=== PATIENT | female | born 1965 | race Caucasian/White ===

== ENCOUNTER 2018-12-28 15:09 | Emergency (ER) | payer BC ==
[~2018-12-28] VITALS: Ht 160 cm; Wt 105.0 kg
[2018-12-28 15:14] VITALS: BP 131/95; PULSE 117; RESP 20; Ht 160 cm; Wt 105.0 kg
[2018-12-28] MEDS ORDERED: TRIMETHOPRIM/SULFAMETHOX (DS) TAB PO ONE (16:00)
[2018-12-28] MEDS ORDERED: LIDOCAINE 1% (MDV) 20 ML INJ SC ONE (16:00)
[2018-12-28] MEDS ORDERED: CEPHALEXIN 500 MG CAP PO ONE (16:00)
[2018-12-28] MEDS ORDERED: IBUPROFEN 600 MG TAB PO ONE (16:00)
[2018-12-28] MEDS ORDERED: LIDOCAINE 4% CR TOP ONE (16:00)
[2018-12-28] MEDS ORDERED: SULF1TAB31 PO (16:28)
[2018-12-28] MEDS ORDERED: CEPH-443 PO (16:28)
[2018-12-28] MEDS ORDERED: OFLO5DRO7 LEFT EAR (16:28)
[2018-12-28] MEDS ORDERED: IBUP-1542 PO (16:28)
--- NOTE | 2018-12-28 16:33 | ERD ---
ER Documentation Chief Complaint Chief Complaint L ear pain x 5 days HPI 53-year-old female presents with left ear pain for last 5 days. She is referred by primary doctor for evaluation for malignant otitis externa. Patient has a history of prediabetes. She does not take medication. Denies fevers, vomiting, shortness of breath chest pain. She denies any significant discharge, bleeding. Denies any URI symptoms. ROS All systems reviewed and are negative except as per history of present illness. Medications Home Meds Active Scripts Ibuprofen* (Motrin*) 600 Mg Tab, 600 MG PO Q6, #20 TAB Prov:JEANNINE MCKEON MD 12/28/18 Ofloxacin Otic (Ofloxacin Otic) 5 Ml Drops, 5 DROP LEFT EAR DAILY for 7 Days, #1 BOTTLE Prov:JEANNINE MCKEON MD 12/28/18 Cephalexin* (Keflex*) 500 Mg Capsule, 500 MG PO QID for 7 Days, CAP Prov:JEANNINE MCKEON MD 12/28/18 Sulfamethoxazole/Trimethoprim* (Bactrim Ds* Tablet) 1 Each Tablet, 1 TAB PO BID for 7 Days, #14 TAB Prov:JEANNINE MCKEON MD 12/28/18 Allergies Allergies: Coded Allergies: nitrofurantoin (Verified Allergy, Unknown, 12/28/18) PMhx/Soc Medical and Surgical Hx: pt denies Medical Hx, pt denies Surgical Hx Hx Alcohol Use: No Hx Substance Use: No Hx Tobacco Use: No Smoking Status: Never smoker FmHx Family History: No diabetes, No coronary disease, No other Physical Exam Vitals Vital Signs Date Temp Pulse Resp B/P (MAP) Pulse Ox O2 O2 Flow FiO2 Time Delivery Rate 12/28/18 97.6 117 20 131/95 95 15:14 (107) Physical Exam Const: No acute distress Head: Atraumatic Eyes: Normal Conjunctiva ENT: Normal External Ears, Nose and Mouth.. Pain and swelling in the left external ear. There is a pointing possible near the external auditory canal entrance. There is no significant erythema or redness of the external ear and no mastoid tenderness. There is tender anterior cervical lymph node on the left. Neck: Full range of motion. No meningismus. Resp: Clear to auscultation bilaterally Cardio: Regular rate and rhythm, no murmurs Abd: Soft, non tender, non distended. Normal bowel sounds Skin: No petechiae or rashes Back: No midline or flank tenderness Ext: No cyanosis, or edema Neur: Awake and alert Psych: Normal Mood and Affect Results 24 hrs Current Medications Medications Dose Sig/Iraj Start Time Status Last (Trade) Ordered Route PRN Stop Time Admin Dose Reason Admin Ibuprofen 600 mg ONCE ONCE 12/28/18 DC 12/28/18 (Motrin) PO 16:00 16:22 12/28/18 16:01 1 tab ONCE ONCE 12/28/18 DC 12/28/18 Trimethoprim/ PO 16:00 16:22 12/28/18 16:01 Sulfamethoxaz ole (Bactrim (Ds)) Cephalexin 500 mg ONCE ONCE 12/28/18 DC 12/28/18 (Keflex) PO 16:00 16:22 12/28/18 16:01 Lidocaine 1 applic ONCE ONCE 12/28/18 DC (Lmx 4% Plus) TOP 16:00 12/28/18 16:01 Lidocaine 20 ml ONCE ONCE 12/28/18 DC (Xylocaine SC 16:00 1% (Mdv) 20 12/28/18 16:01 ml) Procedures/MDM Patient presents with left ear pain for last 5 days. She has signs of what appears to be folliculitis near the external auditory canal. Current signs or symptoms does not suggest malignant otitis externa, mastoiditis, significant cellulitis, necrotizing fasciitis, sepsis. Patient was given Bactrim and Keflex and ibuprofen. Procedure note-0.5 cc of lidocaine was infiltrated locally after alcohol prep to the area of fluctuance. Small amount of Mark was performed with a 18-gauge needle. Small amount of blood was expressed without significant pus. Patient presents with signs and symptoms were appears to be folliculitis of the external ear. We did a small I&D. She will treated with continuation of Bactrim, Keflex, warm compresses and return precautions for worsening redness, fevers, new worsening symptoms. She is advised to have her wound check in 2 days for follow-up. The patient was stable with no new complaints during the ER course. Clinically, there is no current evidence to suggest meningitis, sepsis, acute abdomen, pneumonia, stroke, acute coronary syndrome, pulmonary embolism, aortic dissection or any other emergent condition appearing to require further evaluation or hospitalization. Patient counseled regarding my diagnostic impression and care plan. Prior to discharge all questions answered. Pt agrees with treatment plan and understands strict return precautions. Pt is instructed to follow up with primary care provider within 24-48 hours. Precautionary instructions provided including instructions to return to the ER if not improving or for any worsening or changing symptoms or concerns. Disclaimer: Inadvertent spelling and grammatical errors are likely due to EHR/dictation software use and do not reflect on the overall quality of patient care. Also, please note that the electronic time recorded on this note does not necessarily reflect the actual time of the patient encounter. Departure Diagnosis: Primary Impression: Folliculitis Additional Impression: Left ear pain Condition: Stable Patient Instructions: Folliculitis Additional Instructions: Appears to be folliculitis of external ear. Apply warm compresses at home. Recheck for worsening redness, fevers, new worsening symptoms. JEANNINE MCKEON MD Dec 28, 2018 16:33
== END 2018-12-28 16:30 | disposition home or self-care (01) ==
LOC: FTE 15:09
DX: L73.9 Follicular disorder, unspecified (principal)
CPT/HCPCS: 69000; 99283; Z7610